=== PATIENT | male | born 1950 | race Caucasian/White ===

== ENCOUNTER 2016-08-30 07:56 | Day surgery (SDC) | payer OTHER ==
[2016-08-25 13:45] VITALS: BMI 22.3
[~2016-08-30 07:56] MED LIST: LACTATED RINGERS 1,000 ML IV SCH
[2016-08-30 08:17] VITALS: TEMP 97.5
[2016-08-30] MEDS ORDERED: LACTATED RINGERS 1,000 ML IV ONE (08:20)
[2016-08-30] MEDS ORDERED: LIDOCAINE 1% 20 ML VIAL (10MG/ML) FOR IV START INTRADERMA ONE (08:20)
[2016-08-30] MEDS ORDERED: PROPOFOL 10 MG/ML 20 ML VIAL IV ONE (08:51)
[2016-08-30] MEDS ORDERED: LIDOCAINE 1% INJ 10MG/ML (20 ML MDV) ONE (08:51)
--- NOTE | 2016-08-30 09:19 | P.PCN ---
Date of Procedure: 08/30/16 Procedure(s) Performed: Procedure: Colonoscopy and polypectomy. Preoperative diagnosis: Screening for neoplasia. Postoperative diagnosis: Sigmoid polyp snared but no large polyps or cancer. Preparation: HalfLytely prep. Sedation: Was provided by anesthesia. Brief clinical history: The patient is a 65-year-old male who is referred for this evaluation for screening for neoplasia age being his risk factor. He had no prior colonoscopies. He has no abdominal complaints, bleeding or anemia or any family history of colon cancer. Procedure: With the patient on his left lateral decubitus position and after informed consent and adequate sedation, the perianal area was inspected and it did not show any fissures or fistulas. There were no masses felt on digital rectal examination. The Olympus CFQ 160L video colonoscope was then inserted in the rectum in the usual fashion and advanced to the cecum. There was a medium-sized pedunculated polyp in the distal sigmoid which I snared and retrieved by suction but there were no large polyps or cancer. No obvious diverticular disease or other pathology. I retroflexed endoscope in the rectum before the endoscope was withdrawn. The patient tolerated the procedure well. Plan: The patient was reassured. Will await pathology results. I anticipate repeating this exam in 5 years. He will follow up with you as planned.
[2016-08-30 10:16] VITALS: BP 124/78; PULSE 75; RESP 18
== END 2016-08-30 10:10 | disposition home or self-care (01) ==
LOC: ORWHC2ENDO 07:56
DX: Z12.11 Encounter for screening for malignant neoplasm of colon (principal); D12.5 Benign neoplasm of sigmoid colon; F17.200 Nicotine dependence, unspecified, uncomplicated
CPT/HCPCS: 88305; 45385; J2001; J2704; 99153

== ENCOUNTER → 2016-09-26 | Outpatient (CLI) | payer OTHER ==
[2016-09-26 12:31] LABS: EKG EKG PERFORMED
[2016-09-26 12:53] LABS: Partial Thromboplastin Time 25.4 sec (22.0-30.0); Prothrombin Time 10.5 sec (9.0-12.0)
[2016-09-26 13:00] LABS: Basophils % (A) 1 %; CH 33.7; CHCM 34.1; Eosinophils # (A) 0.2 k/uL (0-0.7); Eosinophils % (A) 3 %; HCT 45.5 % (39.0-53.0); HDW 2.35; Luc # (Auto) 0.24; Luc % (Auto) 4; Lymphocytes % (A) 36 %; MCH 32.6 pg (25.0-35.0); MCHC 32.8 g/dL (31.0-37.0); MCV 99.3 fL (80.0-100.0); Mean Platelet Volume 6.4; Monocytes # (A) 0.4 k/uL (0-1.0); Monocytes % (A) 7 %; Neutrophils # (A) 2.7 k/uL (1.3-7.7); Neutrophils % (A) 49 %; RBC 4.59 m/uL (4.30-5.90); RDW 12.7 % (11.5-15.5); WBC 5.6 k/uL (3.8-10.6)
--- NOTE | 2016-09-26 13:02 | XR ---
EXAMINATION TYPE: XR chest 2V DATE OF EXAM: 09/26/2016 12:56 PM COMPARISON: 01/21/13 HISTORY: Shortness of breath TECHNIQUE: Frontal and lateral views of the chest are obtained. FINDINGS: Scattered senescent parenchymal changes noted. Hyperinflation compatible with COPD. No evidence for infiltrate. No evidence for atelectasis. Heart size is stable. Mediastinal structures are stable and grossly unremarkable. No evidence for hilar prominence. Degenerative changes dorsal spine. IMPRESSION: 1. No evidence for acute pulmonary disease.
[2016-09-26 13:24] LABS: Anion Gap 10 mmol/L; Blood Urea Nitrogen 10 mg/dL (9-20); Calcium 9.4 mg/dL (8.4-10.2); Carbon Dioxide 24 mmol/L (22-30); Chloride 105 mmol/L (98-107); Glucose 57 mg/dL (74-99); Non-African American GFR(MDRD) >60 (>60 ml/min/1.73 sqM); Potassium 4.6 mmol/L (3.5-5.1); Sodium 139 mmol/L (137-145)
[2016-09-26 17:20] LABS: Appearance,Urine Clear (Clear); Bilirubin,Urine Negative (Negative); Glucose,Urine (UA) Negative (Negative); Ketones,Urine Negative (Negative); Leukocyte Esterase,Urine Negative (Negative); Nitrite,Urine Negative (Negative); PH, Urine 5.5 (5.0-8.0); Protein,Urine Negative (Negative); Specific Gravity,Urine 1.004 (1.001-1.035); UA Billing (MACRO vs. MICRO) CHEM; Urobilinogen,Urine <2.0 mg/dL (<2.0)
== END | disposition home or self-care (01) ==
LOC: LABPAT 12:04
PROVIDERS: ATTEND Orthopaedic Surgery Orthopaedic Surgery of the Spine
DX: Z01.818 Encounter for other preprocedural examination (principal); Z01.810 Encounter for preprocedural cardiovascular examination
CPT/HCPCS: 71020; 80048; 81003; 85025; 85610; 85730; 93005

== ENCOUNTER 2016-10-03 12:34 | Day surgery (SDC) | payer OTHER ==
[2016-09-27 15:34] VITALS: BMI 22.7
[~2016-10-03 12:34] MED LIST changes: +BACITRACIN 50,000 UNIT, POLYMYXIN B 500,000 UNIT in SODIUM CHLORIDE 0.9% IRRIGATIO 1,00... IRRIGATION ONE; +FAMOTIDINE 20 MG/2 ML VIAL IV PRN; +HYDROmorphone 1 MG/ML 1 ML SYRINGE IVP PRN; -LACTATED RINGERS 1,000 ML IV SCH; +LIDOCAINE 1% 20 ML VIAL (10MG/ML) FOR IV START INTRADERMA PRN; +MIDAZOLAM 2 MG/2 ML VIAL IV PRN; +ONDANSETRON 4 MG/2 ML VIAL IVP ONE; +ceFAZolin 2 GM in SODIUM CHLORIDE 0.9% 100 ML IVPB ONE
[2016-10-03] MEDS: LACTATED RINGERS 1,000 ML IV SCH (13:20)
[2016-10-03] MEDS ORDERED: SUCCINYLCHOLINE CHLORIDE 100 MG/5 ML SYR IV ONE (14:58)
[2016-10-03] MEDS ORDERED: KETOROLAC 30 MG/ML 1 ML VIAL ONE (14:58)
[2016-10-03] MEDS ORDERED: GLYCOPYRROLATE 0.2 MG/ML 2 ML VIAL ONE (14:58)
[2016-10-03] MEDS ORDERED: fentaNYL (PF) 50 MCG/ML 2 ML AMP ONE (14:58)
[2016-10-03] MEDS ORDERED: ePHEDrine 50 MG/ML 1 ML AMP ONE (14:58)
[2016-10-03] MEDS ORDERED: NEOSTIGMINE 1 MG/ML 10 ML VIAL ONE (14:58)
[2016-10-03] MEDS ORDERED: ROCURONIUM BROMIDE 10 MG/ML 10 ML VIAL IV ONE (14:58)
[2016-10-03] MEDS ORDERED: LIDOCAINE 1% INJ 10MG/ML (20 ML MDV) ONE (14:58)
[2016-10-03] MEDS ORDERED: MIDAZOLAM 2 MG/2 ML VIAL ONE (14:58)
[2016-10-03] MEDS ORDERED: THROMBIN (BOVINE) 5,000 UNIT VIAL TOPICAL ONE (15:37)
[2016-10-03] MEDS ORDERED: GELATIN SPONGE,ABSORB (LARGE) 1 EACH SPONGE TOPICAL ONE (15:37)
[2016-10-03] MEDS ORDERED: LIDOCAINE 0.5%-EPI 1:200,000 50 ML VIAL SQ ONE ×2 (15:37)
[2016-10-03] MEDS ORDERED: methylPREDNISolone ACETATE 80 MG/ML 1 ML VIAL MISCELLANE ONE (15:54)
--- NOTE | 2016-10-03 16:06 | FL ---
FLUOROSCOPY 2 seconds of fluoroscopy time were utilized during L4-5 discectomy. 1 images document the procedure.
--- NOTE | 2016-10-03 16:11 | P.OP ---
Date of Procedure: 10/03/16 Preoperative Diagnosis: Herniated nucleus pulposis L4 5 Degenerative disc disease L4 5 Left lower extremity radiculopathy Stenosis L4 5 Postoperative Diagnosis: Same Anesthesia: GETA Pathology: none sent Condition: stable Disposition: PACU Description of Procedure: BRIEF OPERATIVE NOTE Preoperative Diagnosis: Herniated nucleus pulposis L4 5, stenosis L4 5, left lower extremity radiculopathy, degenerative disc disease Postoperative Diagnosis: Same Procedure: Laminectomy and decompression L4 5 Discectomy for decompression L4 5 Use of fluoroscopic guidance Surgeon: Dr. Bo Breakfast Cook: Derek Person is present throughout the entire the case persistence during positioning, dissection, exposure, visualization, and all crucial elements of the case as well as closure. Anesthesia: General anesthesia Estimated blood loss: Approximately 20 mL Complications: None apparent Components implanted: None Disposition: To recovery room in good stable condition. OPERATIVE INDICATIONS The patient has been having issues in their lower back and lower extremities. He has multilevel disc degeneration but was found have a large extruded disc herniation at L4 5. This herniation correlated well with his lower extremity radicular symptoms. He has been through a number conservative treatments without any lasting benefit. The patient has been through conservative treatment. We discussed various treatment options including surgery, and the patient wishes to proceed with surgery We discussed the risk, patient's alternatives and benefits of surgery including but not limited to, risk of bleeding risk of infection, risk of need for further surgery, risk of decreased , loss of motion, loss of function, nerve damage, paralysis, heart attack, blindness and . OPERATIVE SUMMARY After discussing all the risks, patient alternatives and benefits at length, the patient elected to proceed with surgical intervention, signed informed consent, and presented for their procedure. The patient was seen and examined in the preoperative holding area and the surgical site was marked. The patient was given antibiotics and brought to the operating room. The patient was sedated and intubated by anesthesia in standard fashion. The patient was positioned on to the operating room table in a prone position on the appropriate frame which was well-padded and well molded. We were careful to pad any bony prominences and pressure points. We were careful to maintain the patient's cervical spine and good neutral alignment and position throughout. The patient was prepped and draped in a normal standard fashion. An appropriate timeout and keystone protocol performed. We were able to proceed with the surgery. Fluoroscopy was utilized to establish the appropriate level at L4 5. The local wound area was infiltrated with local anesthetic. An incision was made at the midline longitudinally over the appropriate levels at L4 5. Dissection was taken down subcutaneously to the level of the fascia which was split midline. Dissection was taken over the lamina. Intraoperative fluoroscopy was taken which showed a marker at the appropriate level at L4 5. With the appropriate level positively confirmed, we were able to proceed with laminectomy. The wound was copiously irrigated and suctioned dry as had been done periodically throughout the case. I performed a laminectomy with a combination of curettes and a high-speed bur and Kerrison rongeurs. A small medial facetectomy was performed again further access. A partial foraminotomy was also performed. Portions of the ligamentum flavum were taken down to expose the dura and traversing nerve root. I was able to mobilize the traversing nerve root and gain access to the disc space. Note was made of obvious compression from the disc. There is large extruded disc fragment some ligamentous. Protecting the soft tissue structures, a small annulotomy was established. I was able to perform discectomy and remove any extruded disc fragments and any loose fragments from within the disc itself. I was able to remove significant extruded disc herniation. There is some significant disc desiccation noted. There are number of loose fragments within the disc which were removed. I tried to preserve the disc annulus that appeared stable. There were no further extruded fragments noted. There is no evidence of dural tear or leak. Good hemostasis maintained. The wound was copiously irrigated and suctioned dry. Good decompression and discectomy was noted. We were able to proceed with closure. The fascia was closed for a watertight closure. The subcuticular tissue was closed with absorbable suture. The wound was cleaned and dried and dressed with the appropriate dressing. The drapes were broken down. The patient was gently rolled back onto their hospital bed being careful to maintain their cervical spine and good neutral alignment and position. They were woken up by anesthesia, extubated, and brought to the recovery room in good stable condition. The patient will be admitted to the hospital for observation and for appropriate postoperative care, medical management and monitoring. We will continue to follow them closely about the postoperative course.
[2016-10-03] MEDS ORDERED: HYDROcodone/APAP 5-325MG 1 EACH TAB PO PRN (16:12)
[2016-10-03] MEDS ORDERED: HYDROmorphone 1 MG/ML 1 ML SYRINGE IVP PRN ×2 (16:12)
[2016-10-03] MEDS ORDERED: IBUPROFEN 600 MG TAB PO PRN (16:12)
[2016-10-03 16:32] VITALS: RESP 16
[2016-10-03] MEDS ORDERED: LACTATED RINGERS 1,000 ML IV ONE (17:05)
[2016-10-03] MEDS: HYDROcodone/APAP 5-325MG 1 EACH TAB PO PRN (19:59)
[2016-10-03 22:23] VITALS: PULSE 68
[2016-10-03] MEDS: ceFAZolin 2 GM in SODIUM CHLORIDE 0.9% 100 ML IVPB SCH (23:19)
[2016-10-04] MEDS: HYDROcodone/APAP 5-325MG 1 EACH TAB PO PRN (07:28)
[2016-10-04] MEDS: LACTATED RINGERS 1,000 ML IV SCH (07:32)
[2016-10-04 07:41] VITALS: BP 125/58; TEMP 96.9
[2016-10-04] MEDS: ceFAZolin 2 GM in SODIUM CHLORIDE 0.9% 100 ML IVPB SCH (07:51)
--- NOTE | 2016-10-04 08:23 | P.DS ---
Providers Expected date of discharge: 10/04/16 Attending physician: Nico Bo Primary care physician: Nina Camarillo - Discharge Diagnosis(es) (1) Herniated nucleus pulposus, L4-5 left Current Visit: Yes Status: Acute (2) Degeneration of L4-L5 intervertebral disc Current Visit: Yes Status: Acute (3) Spinal stenosis at L4-L5 level Current Visit: Yes Status: Acute (4) Lumbar back pain with radiculopathy affecting left lower extremity Current Visit: Yes Status: Acute Hospital Course: This is a pleasant 66-year-old male who presented with L4-5 herniated nucleus pulposus, degenerative disc disease, and stenosis with left lower extremity radiculopathy who failed outpatient conservative therapy. He admitted for a laminectomy and decompression with discectomy at L4-5. The patient tolerated the procedure well and did well postoperatively. He states his pain is been well-controlled. He feels his left lower extremity radiculopathy symptoms have already improved postsurgically. He states he is ready for discharge. Condition on day of discharge stable. Patient will be discharged home. Patient was cleared preoperatively for surgery by Dr. Camarillo. Patient currently denies any nausea, vomiting, fever, or chills. Patient is eating and voiding freely without difficulty. Patient may shower Tegaderm dressing intact. Patient may remove Tegaderm dressing in 3 days and shower without a dressing at that time. Patient should keep Steri-Strips intact and allow them to fall off naturally. We will plan to change his dressing prior to discharge. Patient should refrain from driving until at least after their first follow- up appointment in the office. Patient should avoid excessive bending, lifting, and twisting; no lifting greater than 10 pounds. He is given a prescription for [place] 5 mg/325 mg 1 tab every 6 hours as needed for pain dispense 90 (ninety ). Physical Exam on day of discharge: Patient is awake, alert, and oriented 3 Vital signs stable Good chest excursion with deep inspiration and expiration Abdomen soft nontender No signs or symptoms of DVT; no calf pain Extensor hallucis longus, plantarflexion, and dorsiflexion positive sustained bilateral lower extremities Incision is intact; evidence of some blood on the nonstick Telfa without active bleeding; dressing will be changed prior to discharge No erythema, purulence, or signs of infection at the incision site Tegaderm dressing and non-stick Telfa intact Procedures: L4-5 laminectomy decompression and discectomy Patient Condition at Discharge: Stable Plan - Discharge Summary New Discharge Prescriptions: HYDROcodone/APAP 5-325MG [[place] 5-325] 1 tab PO Q6HR PRN #90 tab PRN Reason: Pain Discharge Medication List Cyanocobalamin [Vitamin B-12] 500 mcg PO DAILY 09/27/16 [History] Multivitamin [Men's Multi-Vitamin] 1 each PO DAILY 09/27/16 [History] oxyCODONE-APAP 5-325MG [Percocet 5-325 mg] 1 tab PO Q6HR PRN 09/27/16 [History] HYDROcodone/APAP 5-325MG [[place] 5-325] 1 tab PO Q6HR PRN #90 tab 10/03/16 [Rx] Follow up Appointment(s)/Referral(s): Nico Bo, [Doctor of Osteopathic Medicine] - 2 Weeks (With Derek Osorio at Dr. Bo's office) Activity/Diet/Wound Care/Special Instructions: Keep site clean. May shower with waterproof Tegaderm intact. Do not soak in a tub. On Monday May remove dressing believe Steri-Strips intact and allow them to fray off on their own. On Monday May shower with area uncovered. May ambulate to tolerance. Avoid heavy or rigorous activity. No repetitive bending twisting or lifting. No lifting greater than 20 pounds. Discharge Disposition: HOME SELF-CARE
[2016-10-04] MEDS ORDERED: MULTIVITAMINS, THERA 1 EACH TAB PO SCH (12:00)
[2016-10-04] MEDS ORDERED: CYANOCOBALAMIN 500 MCG TAB PO SCH (12:00)
== END 2016-10-04 10:55 | disposition home or self-care (01) ==
LOC: OR 12:34 → 5MS5E 16:33 → OR 10-04 10:55
PROVIDERS: ATTEND Orthopaedic Surgery Orthopaedic Surgery of the Spine
DX: M51.26 Other intervertebral disc displacement, lumbar region (principal); M51.16 Intervertebral disc disorders with radiculopathy, lumbar region; M48.06 Spinal stenosis, lumbar region; F17.210 Nicotine dependence, cigarettes, uncomplicated
CPT/HCPCS: 63047; 86900; 86901; 86850; 72020; J2250; J1040; J2710; J0690 ×2; J2405; J2001; J3010; J1885; J0330

== ENCOUNTER 2020-11-04 21:14 | Emergency (ER) | payer OTHER ==
[2020-11-04 21:36] VITALS: BP 168/90; PULSE 81; RESP 16; TEMP 98.6
--- NOTE | 2020-11-04 22:11 | CT ---
EXAMINATION TYPE: CT brain brendan wo con DATE OF EXAM: 11/04/2020 COMPARISON: None HISTORY: headache following fall CT DLP: 1370.2 mGycm Automated exposure control for dose reduction was used. Exam performed without contrast. There is some cerebral cortical atrophy. There is no mass effect nor midline shift. There is no sign of intracranial hemorrhage. Calvarium is intact. There is normal aeration of the mastoid sinuses. The skull base is intact. Cervical vertebra have normal alignment. Disc spaces are fairly normal. Posterior elements are intact . There is no compression fracture. Occipital bone appears intact. There is minimal mucosal thickeni ng left side of the sphenoid sinus. IMPRESSION: Mild atrophy. No acute intracranial abnormality. Minor degenerative changes in the cervical spine. No fracture.
== END 2020-11-04 22:02 | disposition left against medical advice (07) ==
LOC: EC 21:14
DX: S09.90XA Unspecified injury of head, initial encounter (principal); W00.9XXA Unspecified fall due to ice and snow, initial encounter; Z53.9 Procedure and treatment not carried out, unspecified reason
CPT/HCPCS: 70450; 72125; 99499

== ENCOUNTER → 2023-09-28 | Outpatient (CLI) | payer MEDICARE ==
--- NOTE | 2023-09-28 11:45 | CTL ---
EXAMINATION TYPE: CT Low Dose Lung DATE OF EXAM: 09/28/2023 11:15 AM CLINICAL INDICATION:Male, 72 years old with history of F17.218 tobacco dependence; current smoker,1pp d x50 years , history of tobacco use. COMPARISON: None. TECHNIQUE: Multiple axial non-contrast scans were obtained from approximately the lung apices through the upper abdomen. Coronal and sagittal reformatted images were obtained. Low dose technique was uti lized. CT DLP: 62 mGycm, Automated exposure control for dose reduction was used. CT Contrast: Contrast used: None Oral contrast used: None FINDINGS: ======== Lack of intravenous contrast and low dose technique limits the evaluation of the vascular and soft ti ssue structures. LUNGS: No evidence of pulmonary fibrosis. No evidence of focal consolidation, pneumothorax or pleural effusion. Mild centrilobular emphysema changes. Nodules: RUL: None. RML: None. RLL: None. SHAWN: None. LLL: None. AIRWAY: Patent and unremarkable. HEART: Size within normal limits. Mild atherosclerosis of the arterial vascular. MEDIASTINUM: No gross evidence of adenopathy. VASCULATURE: No aortic aneurysm. MUSCULOSKELETAL: No acute osseous abnormalities SOFT TISSUES/LYMPH NODES: Unremarkable. LOWER NECK: No significant findings. UPPER ABDOMEN: Right renal cyst. IMPRESSION: 1. No pulmonary nodules. 2. Mild emphysema. CT LUNG RAD AND CT CHEST RECOMMENDATION: Lung-Rad 1 Negative: Continue annual screening with LDCT in 12 months. S Modifier (other clinically significant findings): None Recommend smoking cessation (if current smoker), or continuation of smoking cessation (if prior smoke r). Annual screening for lung cancer with low-dose computed tomography is recommended in adults ages 55 to 77 years who have a 30 pack-year smoking history and currently smoke or have quit within the pa st 15 years. Screening should be discontinued once a person has not smoked for 15 years or develops a health problem that substantially limits life expectancy or the ability or willingness to have curat sheridan lung surgery. Lung rads 2021 [email or web address]
== END | disposition home or self-care (01) ==
LOC: RADCTMAIN 10:57
PROVIDERS: ATTEND Family Medicine
DX: Z12.2 Encounter for screening for malignant neoplasm of respiratory organs (principal); J43.2 Centrilobular emphysema; F17.218 Nicotine dependence, cigarettes, with other nicotine-induced disorders
CPT/HCPCS: 71271

== ENCOUNTER → 2024-09-05 | Outpatient (CLI) | payer MEDICARE ==
--- NOTE | 2024-09-05 16:08 | XR ---
EXAMINATION TYPE: XR shoulder complete RT DATE OF EXAM: 09/05/2024 3:53 PM COMPARISON: None. CLINICAL INDICATION: Male, 73 years old with history of [id number] RT SHLD PAIN, Pain TECHNIQUE: XR shoulder complete RT view(s) obtained. FINDINGS: The humeral head articulates with the glenoid. The acromio-clavicular junction is normal. No acute fractures or dislocations are evident. A follow up study can be performed 7-10 days from acute trauma for continued pain. MRI can be perfor med if soft tissue evaluation would be of benefit. IMPRESSION: 1. No acute osseous shoulder abnormality. [facility], , 09/05/2024 4:05 PM
== END | disposition home or self-care (01) ==
LOC: RADXRYALE 15:35
PROVIDERS: ATTEND Physician Assistant
DX: M25.511 Pain in right shoulder (principal)